=== PATIENT | female | born 1955 | race Hispanic/Latino ===

== ENCOUNTER 2021-03-04 20:24 | Emergency (ER) | payer OTHER ==
[~2021-03-04] VITALS: Ht 147.3 cm; Wt 79.4 kg
[2021-03-04 20:27] VITALS: BP 144/65
[2021-03-04] MEDS ORDERED: DIPHENHYDRAMINE HCL 25 MG CAPSULE PO ONE (21:30)
[2021-03-04] MEDS ORDERED: HYDROCODONE/ACETAMINOPHEN 5/325 MG TAB PO ONE (21:30)
[2021-03-04] MEDS ORDERED: HYDROCODONE/ACETAMINOPHEN 5/325 MG TAB ONE (21:45)
[2021-03-04] MEDS ORDERED: DIPHENHYDRAMINE HCL 25 MG CAPSULE ONE (21:45)
[2021-03-04 21:50] VITALS: BP 148/62
== END 2021-03-04 22:17 | disposition home or self-care (01) ==
LOC: EDH 20:24
DX: S60.361A Insect bite (nonvenomous) of right thumb, initial encounter (principal); I10 Essential (primary) hypertension; Z90.49 Acquired absence of other specified parts of digestive tract; Z98.890 Other specified postprocedural states; Z79.02 Long term (current) use of antithrombotics/antiplatelets; W57.XXXA Bitten or stung by nonvenomous insect and other nonvenomous arthropods, initial encounter; Y93.89 Activity, other specified; Y92.89 Other specified places as the place of occurrence of the external cause; Y99.8 Other external cause status
CPT/HCPCS: 99283; Q0163

== ENCOUNTER 2022-08-28 12:20 | Emergency (ER) | payer OTHER ==
[~2022-08-28] VITALS: Ht 144.8 cm; Wt 80.7 kg
[2022-08-28 13:21] LABS: APPEARANCE,URINE CLEAR (CLEAR); BILIRUBIN,URINE NEGATIVE (NEGATIVE); COLOR,URINE LIGHT-YELLOW (YELLOW); GLUCOSE, URINE (UA) NEGATIVE (NEGATIVE); KETONES,URINE NEGATIVE (NEGATIVE); LEUKOCYTE ESTERASE ,URINE NEGATIVE Leu/uL (NEGATIVE); NITRATE,URINE NEGATIVE (NEGATIVE); PROTEIN,URINE NEGATIVE (NEGATIVE); UROBILINOGEN,URINE 0.2 mg/dL (0.2-1.0)
[2022-08-28 13:22] LABS: EOSINOPHILS % (AUTO) 1.6 % (0.0-8.0); HEMATOCRIT 41.4 % (36-48); LYMPHOCYTES % (AUTO) 30.3 % (21.0-51.0); MEAN CORPUSCULAR HEMOGLOBIN 30.6 pg (27.0-33.0); MEAN CORPUSCULAR HGB CONC 33.6 g/dL (32.0-36.0); MEAN CORPUSCULAR VOLUME 91.2 fL (79-99); MONOCYTES % (AUTO) 12.2 % (3.0-13.0); NEUTROPHILS % (AUTO) 55.4 % (40.0-77.0); PLATELET COUNT (AUTO) 144 K/uL (130-400); RED BLOOD CELL COUNT(AUTO) 4.54 MIL/uL (4.00-5.50); RED CELL DISTRIBUTION WIDTH 13.6 % (11.0-15.5); WHITE BLOOD COUNT (AUTO) 3.8 K/uL (4.8-10.8)
[2022-08-28 13:28] LABS: MUCUS,URINE RARE LPF (None Seen); WBC,URINE 0-1 /HPF (0-1)
[2022-08-28 13:30] VITALS: BP 124/48
[2022-08-28 13:30] LABS: CREATININE 0.8 mg/dL (0.5-1.5); POTASSIUM 3.8 mmol/L (3.5-5.1)
[2022-08-28 13:36] LABS: ALBUMIN 3.9 g/dL (3.5-5.0); TOTAL PROTEIN, SERUM 8.4 g/dL (6.0-8.3)
[2022-08-28] MEDS ORDERED: OSEL75 PO (13:55)
[2022-08-28] MEDS ORDERED: IBUP-2091 PO (13:55)
== END 2022-08-28 14:09 | disposition home or self-care (01) ==
LOC: EDH 12:20
DX: J10.1 Influenza due to other identified influenza virus with other respiratory manifestations (principal); I10 Essential (primary) hypertension; Z90.49 Acquired absence of other specified parts of digestive tract; Z20.822 Contact with and (suspected) exposure to COVID-19
CPT/HCPCS: 99283; 87635; 80053; 87804 ×2; 85025; 81001; 36415; C9803

== ENCOUNTER 2022-10-21 08:54 | Emergency (ER) | payer OTHER ==
[~2022-10-21] VITALS: Ht 144.8 cm; Wt 80.3 kg
[~2022-10-21 08:54] MED LIST: IBUP-2091 PO; OSEL75 PO
[2022-10-21 08:58] VITALS: BP 126/59
[2022-10-21] MEDS ORDERED: ACET10DR15 OT (09:16)
== END 2022-10-21 09:34 | disposition home or self-care (01) ==
LOC: EDH 08:54
DX: H60.91 Unspecified otitis externa, right ear (principal); E78.00 Pure hypercholesterolemia, unspecified; I11.9 Hypertensive heart disease without heart failure; Z90.49 Acquired absence of other specified parts of digestive tract; Z88.1 Allergy status to other antibiotic agents; Z79.1 Long term (current) use of non-steroidal anti-inflammatories (NSAID)

== ENCOUNTER 2023-04-01 15:23 | Emergency (ER) | payer BC, OTHER ==
[~2023-04-01] VITALS: Ht 144.8 cm; Wt 74.8 kg
[~2023-04-01 15:23] MED LIST changes: +ACET10DR3 OT
[2023-04-01 15:27] VITALS: BP 110/48; PULSE 65; RESP 16
[2023-04-01] MEDS ORDERED: PRED20TA3 PO (16:47)
[2023-04-01] MEDS ORDERED: D-ME118S47 PO (16:47)
[2023-04-01] MEDS ORDERED: PREDNISONE 20 MG TABLET PO ONE (17:00)
== END 2023-04-01 17:05 | disposition home or self-care (01) ==
LOC: EDH 15:23
DX: J06.9 Acute upper respiratory infection, unspecified (principal); E78.00 Pure hypercholesterolemia, unspecified; I10 Essential (primary) hypertension; Z88.1 Allergy status to other antibiotic agents; Z90.49 Acquired absence of other specified parts of digestive tract; Z20.822 Contact with and (suspected) exposure to COVID-19
CPT/HCPCS: 99283; 71045; 87635; 87880; 87804 ×2; C9803

== ENCOUNTER 2023-11-07 14:09 | Emergency (ER) | payer BC, OTHER ==
[~2023-11-07] VITALS: Ht 144.8 cm; Wt 79.4 kg
[~2023-11-07 14:09] MED LIST changes: +BROM118S48 PO; +PRED20TA3 PO
[2023-11-07 19:28] VITALS: BP 137/60; PULSE 65; RESP 16; O2SAT 99
== END 2023-11-07 19:28 | disposition home or self-care (01) ==
LOC: EDH 14:09
DX: M79.671 Pain in right foot (principal); M79.674 Pain in right toe(s); Z79.899 Other long term (current) drug therapy; Z90.49 Acquired absence of other specified parts of digestive tract; Z98.890 Other specified postprocedural states; Z88.8 Allergy status to other drugs, medicaments and biological substances
CPT/HCPCS: 73630; 93926

== ENCOUNTER 2024-11-29 11:51 | Emergency (ER) | payer BC ==
[~2024-11-29] VITALS: Ht 152.4 cm; Wt 80.7 kg
--- NOTE | 2024-11-29 12:56 | HMCIMG ---
PORTABLE CHEST RADIOGRAPH INDICATION: sob COMPARISON: 04/01/2023 FINDINGS: Heart size is normal. Mild calcific plaque is present along the aortic arch diez. The pulmonary vascularity and tone appear normal. No abnormal pulmonary parenchymal opacity or consolidation identified. No significant pleural effusion noted. No pneumothorax detected. IMPRESSION: No radiographic evidence for any acute cardiopulmonary process.
--- NOTE | 2024-11-29 13:21 | HMCIMG ---
ULTRASOUND VENOUS DOPPLER RIGHT LOWER EXTREMITY INDICATION: Pain and swelling. TECHNIQUE: Routine grayscale and color Doppler ultrasound of the right lower extremity veins performed. COMPARISON: None. FINDINGS: The demonstrated veins of the right lower extremity including the common femoral vein, femoral vein, and popliteal vein are associated with normal compressibility, augmentation, and flow. Normal respiratory variation was identified. No evidence for echogenic intraluminal thrombus. 4.6 x 1.2 x 2.1 cm simple anechoic nonvascular fluid collection along the posterior right knee. IMPRESSION: No evidence for deep venous thrombosis. 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
[2024-11-29 14:27] LABS: BASOPHILS # (AUTO) 0.03 K/uL (0.00-0.20); BASOPHILS % (AUTO) 0.7 % (0.0-5.0); EOSINOPHILS # (AUTO) 0.12 K/uL (0.00-0.70); EOSINOPHILS % (AUTO) 2.8 % (0.0-8.0); HEMATOCRIT 38.6 % (36-48); IMMATURE GRANULOCYTE ABSOLUTE 0.01 K/uL (0-1); LYMPHOCYTES # (AUTO) 2.3 K/uL (1.0-4.8); LYMPHOCYTES % (AUTO) 53.4 % (21.0-51.0); MEAN CORPUSCULAR HEMOGLOBIN 31.1 pg (27.0-33.0); MEAN CORPUSCULAR HGB CONC 33.2 g/dL (32.0-36.0); MEAN CORPUSCULAR VOLUME 93.7 fL (79-99); MONOCYTES # (AUTO) 0.6 K/uL (0.1-1.0); MONOCYTES % (AUTO) 14.4 % (3.0-13.0); NEUTROPHILS # (AUTO) 1.2 K/uL (1.8-7.7); NEUTROPHILS % (AUTO) 28.5 % (40.0-77.0); PLATELET COUNT (AUTO) 141 K/uL (130-400); RED BLOOD CELL COUNT(AUTO) 4.12 MIL/uL (4.00-5.50); WHITE BLOOD COUNT (AUTO) 4.4 K/uL (4.8-10.8)
[2024-11-29 14:34] LABS: CREATININE 0.7 mg/dL (0.5-1.0)
[2024-11-29 14:44] LABS: MAGNESIUM 1.7 mg/dL (1.80-2.40)
[2024-11-29 14:55] LABS: B-TYPE NATRIURETIC PEPTIDE 35 pg/mL (0-100)
--- NOTE | 2024-11-29 15:18 | HMCIMG ---
RIGHT KNEE RADIOGRAPHS - 3 VIEWS INDICATION: Right knee pain COMPARISON: None FINDINGS: AP, lateral, and oblique views. No acute fracture or dislocation identified. Mild tricompartmental right knee osteoarthropathy involves the medial greater than lateral and patellofemoral compartments, and includes joint space narrowing, remodeling of the articular surfaces, and mild marginal osteophyte formation. No significant joint effusion is present. Overlying soft tissues appear normal. IMPRESSION: Mild tricompartmental right knee osteoarthropathy.
--- NOTE | 2024-11-29 15:39 | HMCIMG ---
Exam Type: US ARTERIAL UNILA LOW EXT DUPL Clinical Information: r/o occlusion Comparison: None Findings: Diffuse bilateral plaque is identified. There are normal triphasic waveforms of the common femoral artery. There are biphasic waveforms of the only other vessels consistent with moderate nonocclusive hemodynamically significant disease. IMPRESSION: Peripheral vascular disease as noted.
--- NOTE | 2024-11-29 16:00 | ERN ---
General Chief Complaint: Lower Extremity Pain/Injury Stated Complaint: LEG PAIN Time Seen by MD: 11:51 Time Seen by Midlevel: 11:51 Source: patient History of Present Illness Initial Comments The patient is a 69-year-old female presenting to the emergency department after she was sent by her primary care doctor for evaluation of right lower extremity pain and swelling that has been ongoing for the last two days. The patient was sent into rule out a deep vein thrombosis and arterial occlusion. Allergies: Coded Allergies: ciprofloxacin (Unverified Allergy, Unknown, 08/28/22) Home Meds Active Scripts D-Methorphan Hb/P-Epd HCl/Bpm (Bromfed Dm Cough Syrup) 118 Ml Syrup, 5 ML PO Q6HPRN PRN for COUGH/COLD SYMPTOMS, #240 ML Prov:JUAN [facility] 04/01/23 Prednisone (Prednisone) 20 Mg Tablet, 2 TAB PO DAILY for 5 Days, #10 TAB 0 Refills Prov:JUAN [facility] 04/01/23 Acetic Acid/Hydrocortisone (Hydrocortison-Acetic Acid Soln) 10 Ml Drops, 10 ML OT QID for 7 Days, #60 DROP Prov:MORE GARNETT MD 10/21/22 Ibuprofen (Motrin/Advil) 400 Mg Tab, 400 MG PO Q6HPRN PRN for FEVER for 5 Days, #30 TAB Prov:MORE GARNETT MD 08/28/22 Oseltamivir Phosphate (Tamiflu) 75 Mg Cap, 75 MG PO BID for 5 Days, #10 CAP Prov:MORE GARNETT MD 08/28/22 Past Medical History Past Medical History: Other Medical History Other: CIRCULATION Past Surgical History: Appendectomy, Other, Surgical History Other: HEMORROIDS Family History Family History: Negative Social History Social History: Negative, Lives with family Female( History) History: Not Applicable ROS Dictation CONSTITUTIONAL: Negative except for HPI HEAD/FACE: Negative except for HPI EENT: Negative except for HPI RESPIRATORY: Negative except for HPI GASTROINTESTINAL/ABDOMINAL: Negative except for HPI GENITOURINARY: Negative except for HPI MUSCULOSKELETAL: Negative except for HPI INTEGUMENTARY: Negative except for HPI NEUROLOGICAL/PSYCH: Negative except for HPI HEMATOLOGIC/LYMPHATIC: Negative except for HPI All Systems Negative, Except as noted above. 13 point review of systems assessed and all negative except for above. Physical Exam Physical Exam Dictation Vital Signs reviewed General Appearance: Alert, oriented x 3, no acute distress, well developed, no urished. Head and Face: non-traumatic. Eyes: PERRL, pink conjunctivas, eyelid no trauma, anterior chamber with arcus senilis. Ears: Pinnas intact and no signs of trauma or erythema ear canals clear and no discharge TM no erythema Nose: No discharge, no bleeding. Oropharynx: Mouth normal, tongue pink, pharynx clear,no erythema, tonsils no exudates, no abscesses noted, mucous m embrane moist Neck: Supple, non-tender, no thyromegaly, no masses, no JVD, no bruits Breast:Deferred Chest:No tenderness, no crepitus, no paradoxical movement, no retractions Lungs:Clear, well-ventilated, symmetric, no rales, no wheezing, no rhonchi, no stridor, good breath sounds bilaterally Heart: Regular rate, regular rhythm, no murmur, no gallops Vascular: no peripheral edema, Abdomen: Soft, positive bowel sounds, nondistended, no guarding, nontender, no rebound, no masses no hepatomegaly, no splenomegaly, no Paulson's sign, no hernias. Rectal: Deferred Genital: Deferred Neurological: Normal speech, motor function intact, sensory function intact Musculoskeletal: Neck nontender, full range of motion, back nontender, full range of motion, Extremities: nontender, full range of motion Skin: Color pink, dry, no turgor, no rash, no lacerations, no abrasions, no contusions. Lymphatic: Deferred Results Laboratory and Microbiology Lab and Micro Result Laboratory Tests Test 11/29/24 13:58 White Blood Count 4.4 K/uL (4.8-10.8) L Red Blood Count 4.12 MIL/uL (4.00-5.50) Hemoglobin 12.8 g/dL (12.0-16.0) Hematocrit 38.6 % (36-48) Mean Corpuscular Volume 93.7 fL (79-99) Mean Corpuscular Hemoglobin 31.1 pg (27.0-33.0) Mean Corpuscular Hemoglobin Concent 33.2 g/dL (32.0-36.0) Red Cell Distribution Width 14.0 % (11.0-15.5) Platelet Count 141 K/uL (130-400) Mean Platelet Volume 11.7 fL (7.5-10.5) H Immature Granulocyte % (Auto) 0.2 % (0-1) Neutrophils (%) (Auto) 28.5 % (40.0-77.0) L Lymphocytes (%) (Auto) 53.4 % (21.0-51.0) H Monocytes (%) (Auto) 14.4 % (3.0-13.0) H Eosinophils (%) (Auto) 2.8 % (0.0-8.0) Basophils (%) (Auto) 0.7 % (0.0-5.0) Neutrophils # (Auto) 1.2 K/uL (1.8-7.7) L Lymphocytes # (Auto) 2.3 K/uL (1.0-4.8) Monocytes # (Auto) 0.6 K/uL (0.1-1.0) Eosinophils # (Auto) 0.12 K/uL (0.00-0.70) Basophils # (Auto) 0.03 K/uL (0.00-0.20) Absolute Immature Granulocyte (auto 0.01 K/uL (0-1) Nucleated Red Blood Cells 0.0 % (0.0-0.19) Sodium Level 134 mmol/L (136-145) L Potassium Level 4.0 mmol/L (3.5-5.1) Chloride Level 100 mmol/L (101-111) L Carbon Dioxide Level 30 mmol/L (21-32) Blood Urea Nitrogen 24 mg/dL (7-18) H Creatinine 0.7 mg/dL (0.5-1.0) Glomerular Filtration Rate Calc 92 mL/min (>90) Random Glucose 90 mg/dL (70-105) Total Calcium 8.8 mg/dL (8.5-10.1) Magnesium Level 1.70 mg/dL (1.80-2.40) L Troponin I High Sensitivity 31 ng/L (4-50) B-Type Natriuretic Peptide 35 pg/mL (0-100) Labs Reviewed?: Yes MDM MDM: The patient is a 69-year-old female presenting to the emergency department after she was sent by her primary care doctor for evaluation of right lower ex tremity pain and swelling that has been ongoing for the last two days. The patient was sent into rule out a deep vein thrombosis and arterial occlusion. On physical examination the patient has some mild swelling to the right knee. An arterial/Doppler ultrasound was obtained and there was no evidence of an arterial occlusion or deep vein thrombosis. There was some stenosis noted on arterial ultrasound but no complete occlusion was seen. An x-ray of the right knee reveals severe arthritis which could be contributing to the patient's symptoms. Doppler ultrasound also revealed a Bernabe cyst. The patient was given education on these conditions and was discharged home with supportive management. Return precautions discussed Differential diagnosis: DVT, arterial occlusion, Bernabe cyst, arthritis There are no social concerns with this patient. Prescription drug management Prescriptions will include: None Medical management and examination interpretation discussions were had by me with other qualified healthcare professionals as indicated for the patient's care. ED Course Orders Procedure Category Date Status Time Cbc With Differential LAB 11/29/24 Complete 12:13 Basic Metabolic Panel LAB 11/29/24 Complete 12:13 B-Type Natriuretic LAB 11/29/24 Complete Peptide 12:13 Magnesium LAB 11/29/24 Complete 12:13 Troponin I High LAB 11/29/24 Complete Sensitivity 12:13 Chest 1vw RAD 11/29/24 Resulted 12:13 Us Venous Doppler US 11/29/24 Resulted Unilateral 12:13 Us Arterial Unila Low US 11/29/24 Resulted Ext Dupl 14:51 Knee 3vws Rt RAD 11/29/24 Resulted 14:51 Hydrocodone/Apap PHA 11/29/24 Complete 5/325 ([place] 5/325mg) 16:00 Ketorolac PHA 11/29/24 Complete Tromethamine 15mg/Ml 16:00 Vital Signs Date Time Temp Pulse Resp B/P (MAP) Pulse Ox O2 Delivery O2 Flow Rate FiO2 11/29/24 16:40 98.1 59 18 122/55 98 Room Air* 0 21 11/29/24 12:05 98.4 56 18 111/57 97 Room Air [place] [address] [address] IMAGING REPORT Signed PATIENT: CONSTANZA ABREU MR#: [id number] : 1955 SEX: F AGE: 69 LOCATION: [facility] ORDER 1453 STATUS: REG ER REPORT#: [id number] SERVICE 50 REASON: right knee pain ORDERING PHYSICIAN: JASON MARQUEZ PROCEDURE: KNEE 3V RT - KNEE 3VWS RT RIGHT KNEE RADIOGRAPHS - 3 VIEWS INDICATION: Right knee pain COMPARISON: None FINDINGS: AP, lateral, and oblique views. No acute fracture or dislocation identified. Mild tricompartmental right knee osteoarthropathy involves the medial greater than lateral and patellofemoral compartments, and includes joint space narrowing, remodeling of the articular surfaces, and mild marginal osteophyte formation. No significant joint effusion is present. Overlying soft tissues appear normal. IMPRESSION: Mild tricompartmental right knee osteoarthropathy. DICTATED BY: LISSET RODRÍGUEZ MD DATE: 11/29/241514 ELECTRONICALLY SIGNED BY: LISSET RODRÍGUEZ MD DATE: 11/29/241517 [place] [address] [place] [address] IMAGING REPORT Signed PATIENT: CONSTANZA ABREU MR#: [id number] : 1955 SEX: F AGE: 69 LOCATION: [facility] ORDER 52 STATUS: REG ER HOSPITAL REPORT#: [id number] SERVICE 50 REASON: r/o occlusion ORDERING PHYSICIAN: JASON MARQUEZ PROCEDURE: ART U LE - US ARTERIAL UNILA LOW EXT DUPL Exam Type: US ARTERIAL UNILA LOW EXT DUPL Clinical Information: r/o occlusion Comparison: None Findings: Diffuse bilateral plaque is identified. There are normal triphasic waveforms of the common femoral artery. There are biphasic waveforms of the only other vessels consistent with moderate nonocclusive hemodynamically significant disease. IMPRESSION: Peripheral vascular disease as noted. DICTATED BY: CHRISTA BURCH MD DATE: 11/29/241534 ELECTRONICALLY SIGNED BY: CHRISTA BURCH MD DATE: 11/29/241538 [place] [id number] [place], [place] [id number] IMAGING REPORT Signed PATIENT: CONSTANZA ABREU MR#: [id number] : 1955 SEX: F AGE: 69 LOCATION: [facility] ORDER 15 STATUS: REG ER HOSPITAL REPORT#: [id number] SERVICE 12 REASON: rle swelling pain ORDERING PHYSICIAN: JASON MARQUEZ PROCEDURE: VENOUS UNI - US VENOUS DOPPLER UNILATERAL ULTRASOUND VENOUS DOPPLER RIGHT LOWER EXTREMITY INDICATION: Pain and swelling. TECHNIQUE: Routine grayscale and color Doppler ultrasound of the right lower extremity veins performed. COMPARISON: None. FINDINGS: The demonstrated veins of the right lower extremity including the common femoral vein, femoral vein, and popliteal vein are associated with normal compressibility, augmentation, and flow. Normal respiratory variation was identified. No evidence for echogenic intraluminal thrombus. 4.6 x 1.2 x 2.1 cm simple anechoic nonvascular fluid collection along the posterior right knee. IMPRESSION: No evidence for deep venous thrombosis. 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 DICTATED BY: LISSET RODRÍGUEZ MD DATE: 11/29/24 1317 ELECTRONICALLY SIGNED BY: LISSET RODRÍGUEZ MD DATE: 11/29/24 [address] [place] [id number] IMAGING REPORT Signed PATIENT: CONSTANZA ABREU MR#: [id number] : 1955 SEX: F AGE: 69 LOCATION: [facility] ORDER 15 STATUS: REG ER REPORT#: [id number] SERVICE REASON: sob ORDERING PHYSICIAN: JASON MARQUEZ PROCEDURE: CXR1VW - CHEST 1VW PORTABLE CHEST RADIOGRAPH INDICATION: sob COMPARISON: 04/01/2023 FINDINGS: Heart size is normal. Mild calcific plaque is present along the aortic arch diez. The pulmonary vascularity and tone appear normal. No abnormal pulmonary parenchymal opacity or consolidation identified. No significant pleural effusion noted. No pneumothorax detected. IMPRESSION: No radiographic evidence for any acute cardiopulmonary process. DICTATED BY: LISSET RODRÍGUEZ MD DATE: 11/29/24 1255 ELECTRONICALLY SIGNED BY: LISSET RODRÍGUEZ MD DATE: 11/29/24 1251 DX & DISP Disposition: Discharge Departure Impression: Primary Impression: Arthritis of right knee Additional Impression: Bernabe cyst Condition: Stable Additional Instructions: Your blood work today is stable. Cardiac workup was performed in the emergency department in all cardiac enzymes are negative. Your chest x-ray is normal. Your right leg ultrasound does not show any evidence of a blood clot or arterial occlusion. Your Doppler ultrasound reveals a Bernabe cyst in the right knee. An x-ray of the right knee was performed which shows severe arthritis which could be the reason for your pain. You will need to follow up with your primary care doctor for possible outpatient referral to job placement specialist. Referrals: Curt FLOWERS MD (PCP) Time of Disposition: 15:58 I have reviewed the case, and I agree with, Diagnosis and Plan I performed the substantive portion of the visit. I have reviewed and personally made and approve the management plan that is documented in the note by myself or the MYLENE. I acknowledge for responsibility for the patient's management plan. JASON MARQUEZ Nov 29, 2024 16:00
[2024-11-29] MEDS: HYDROcodone/APAP 5/325 1 TAB TABLET PO ONE (16:03)
[2024-11-29] MEDS: ketOROlac 15MG/ML VIAL (15MG/ML) IM ONE (16:04)
[2024-11-29 16:40] VITALS: BP 122/55; PULSE 59; RESP 18; TEMP 98.1; O2SAT 98
== END 2024-11-29 16:50 | disposition home or self-care (01) ==
LOC: EDH 11:51
DX: M17.11 Unilateral primary osteoarthritis, right knee (principal); M71.21 Synovial cyst of popliteal space [Baker], right knee; Z79.52 Long term (current) use of systemic steroids; Z88.1 Allergy status to other antibiotic agents; Z90.49 Acquired absence of other specified parts of digestive tract
CPT/HCPCS: 99285; 93971; 93926; 71045; 83735; 84484; 80048; 83880; 85025; 36415; 73562; 96372; J1885; 99284